=== PATIENT | female | born 1945 | race Caucasian/White ===

== ENCOUNTER 2016-10-01 03:22 | Emergency (ER) | payer OTHER ==
[2016-10-01 03:30] VITALS: TEMP 98.1
--- NOTE | 2016-10-01 04:15 | EDPHY ---
H & P Stated Complaint: vaginal bleeding around 2am HPI/ROS: HPI CHIEF COMPLAINT: Vaginal bleeding that started at 2:00 a.m.. HISTORY OF PRESENT ILLNESS: This patient otherwise healthy 71-year-old female, presents emergency room after she developed vaginal bleeding sudden onset while she was sleeping at 2:00 a.m.. She has never had this before. She has a history of migraines, takes Lexapro, and a statin, not on any blood thinners. She denies any abdominal pain or significant cramping. Denies dysuria. She tells me she woke up and there was blood in between her legs with dark clot. She then went to the bathroom more blood came out. She denies chest pain, fatigue, lightheadedness, dizziness. Denies trauma. Past Medical History: Migraine headaches, depression, hyperlipidemia Past Surgical History: Ovarian cyst for a mass, orthopedic surgery. Social History: Denies daily use of drugs alcohol tobacco products. Family History: Noncontributory ROS REVIEW OF SYSTEMS: A comprehensive 10 point review of systems is otherwise negative aside from elements mentioned in the history of present illness. Exam Constitutional appears well nontoxic, triage nursing summary reviewed, vital signs reviewed, awake/alert. Eyes normal conjunctivae and sclera, EOMI, PERRLA. HENT normal inspection, atraumatic, moist mucus membranes, no epistaxis, neck supple/ no meningismus, no raccoon eyes. Respiratory clear to auscultation bilaterally, normal breath sounds, no respiratory distress, no wheezing. Cardiovascular rate normal, regular rhythm, no murmur, no edema, distal pulses normal. Gastrointestinal soft, non-tender, no rebound, no guarding, normal bowel sounds, no distension, no pulsatile mass. Genitourinary no CVA tenderness. EXAM: CONCHIS SANCHEZ at bedside: Unremarkable exam. Dark brownish looking blood at the os. And in the vaginal vault. No brisk bleed. No tenderness. No obvious mass visualized. No external lesions. Unable to fully see the cervix. Dark brown clotted blood present. Musculoskeletal no midline vertebral tenderness, full range of motion, no calf swelling, no tenderness of extremities, no meningismus, good pulses, neurovascularly intact. Skin pink, warm, & dry, no rash, skin atraumatic. Neurologic awake, alert and oriented x 3, AAOx3, moves all 4 extremities equally, motor intact, sensory intact, CN II-XII intact, normal cerebellar, normal vision, normal speech. Psychiatric normal mood/affect. Heme/Lymph/Immune no lymphadenopathy. Differential Diagnosis: Includes but is not limited to in a particular order vaginal bleeding, cervical cancer, uterine cancer, fibroid Medical Decision Making: Plan for this patient IV establishment, blood draw for CBC, chemistry, check urinalysis, pelvic exam at bedside. Pelvic ultrasound. Re-evaluation: Ultrasound of the pelvis The results of the study are unable to visualize ovaries due to atrophy most likely. Uterus normal. Cervix appears to have a clot in it. Otherwise unremarkable pelvic ultrasound. . I discussed the results of this study with the radiologist Dr. Moreira. 0545: Spoke with Dr. Flowers. She would like to see this patient 11: 00 a.m. on Monday. I did go over ultrasound blood work results. I did explain that I cannot fully see the cervix however there is no significant bleed. Blood work is stable hemodynamics are stable. Ultrasound unrevealing. 0600: I did go over this with the patient. She understands call OBGYN on Monday for her 11 a.m. appointment. She understands to return emergency room if she has brisk vaginal bleeding or heavy vaginal bleeding or any questions or concerns. Source: Patient - Personal History Current Tetanus/Diphtheria Vaccine: Unsure Current Tetanus Diphtheria and Acellular Pertussis (TDAP): Unsure Tetanus Vaccine Date: <10 years - Medical/Surgical History Hx Asthma: No Hx Chronic Respiratory Disease: No Hx Diabetes: No Hx Cardiac Disease: No Hx Renal Disease: No Hx Cirrhosis: No Hx Alcoholism: No Hx HIV/AIDS: No Hx Splenectomy or Spleen Trauma: No Other PMH: PMH: CHOLESTEROL, MIGRAINES. PSH: TONSILS,APPY,GROWTH REMOVED FROM OVARY,ORTHO SURG - Social History Smoking Status: Never smoked Constitutional: Initial Vital Signs Temperature (C) 36.7 C 10/01/16 03:26 Heart Rate 70 10/01/16 03:26 Respiratory Rate 16 10/01/16 03:26 Blood Pressure 133/77 H 10/01/16 03:26 O2 Sat (%) 95 10/01/16 03:26 O2 Delivery Mode Room Air Allergies/Adverse Reactions: Sulfa (Sulfonamide Antibiotics) Allergy (Verified 10/01/16 03:35) Home Medications: Medication Instructions Recorded ? Statin Unk Dose 04/23/14 Imitrex Unk Dose 04/23/14 Lexapro Unk Dose 04/23/14 Medical Decision Making - Data Points Laboratory Results: Laboratory Results 10/01/16 04:40 10/01/16 04:40 10/01/16 10/01/16 10/01/16 04:40 04:40 04:40 WBC 7.65 10^3/uL 10^3/uL (3.80-9.50) RBC 4.02 10^6/uL L 10^6/uL (4.18-5.33) Hgb 13.2 g/dL g/dL (12.6-16.3) Hct 39.6 % % (38.0-47.0) MCV 98.5 fL fL (81.5-99.8) MCH 32.8 pg pg (27.9-34.1) MCHC 33.3 g/dL g/dL (32.4-36.7) RDW 12.6 % % (11.5-15.2) Plt Count 121 10^3/uL L 10^3/uL (150-400) MPV 11.4 fL fL (8.7-11.7) Neut % (Auto) 51.1 % % (39.3-74.2) Lymph % (Auto) 34.4 % % (15.0-45.0) [place] % (Auto) 10.3 % % (4.5-13.0) Eos % (Auto) 3.3 % % (0.6-7.6) Baso % (Auto) 0.5 % % (0.3-1.7) Nucleat RBC Rel Count 0.0 % % (0.0-0.2) Absolute Neuts (auto) 3.91 10^3/uL 10^3/uL (1.70-6.50) Absolute Lymphs (auto) 2.63 10^3/uL 10^3/uL (1.00-3.00) Absolute Monos (auto) 0.79 10^3/uL 10^3/uL (0.30-0.80) Absolute Eos (auto) 0.25 10^3/uL 10^3/uL (0.03-0.40) Absolute Basos (auto) 0.04 10^3/uL 10^3/uL (0.02-0.10) Absolute Nucleated RBC 0.00 10^3/uL 10^3/uL (0-0.01) Immature Gran % 0.4 % % (0.0-1.1) Immature Gran # 0.03 10^3/uL 10^3/uL (0.00-0.10) Sodium 140 mEq/L mEq/L (134-144) Potassium 4.3 mEq/L mEq/L (3.5-5.2) Chloride 107 mEq/L mEq/L (97-110) Carbon Dioxide 22 mEq/l mEq/l (22-31) Anion Gap 11 mEq/L mEq/L (8-16) BUN 16 mg/dL mg/dL (7-23) Creatinine 0.9 mg/dL mg/dL (0.6-1.0) Estimated GFR > 60 Glucose 86 mg/dL mg/dL (70-100) Calcium 9.2 mg/dL mg/dL (8.5-10.4) Urine Color RED Urine Appearance TURBID Urine pH 6.0 (5.0-7.5) Ur Specific [place] 1.015 (1.002-1.030) Urine Protein 2+ H (NEGATIVE) Urine Ketones NEGATIVE (NEGATIVE) Urine Blood 2+ H (NEGATIVE) Urine Nitrate NEGATIVE (NEGATIVE) Urine Bilirubin NEGATIVE (NEGATIVE) Urine Urobilinogen NEGATIVE EU EU (0.2-1.0) Ur Leukocyte Esterase 1+ H (NEGATIVE) Urine RBC 50-182 /hpf H /hpf (0-3) Urine WBC 50-182 /hpf H /hpf (0-3) Ur Epithelial Cells NONE SEEN /lpf /lpf (NONE-1+) Urine Bacteria 4+ /hpf H /hpf (NONE SEEN) Urine Glucose NEGATIVE (NEGATIVE) Departure - Departure Disposition: Home, Routine, Self-Care Clinical Impression: Vaginal bleeding Condition: Good Instructions: Dysfunctional Uterine Bleeding (ED) Additional Instructions: 1. Return to the emergency room if you have severe heavy bleeding. 2. Please follow up with OBGYN. Please call their for an appointment. 3. They would like to see on Monday at 11:00 a.m. it. Please call there to confirm your appointment. Referrals: Carmen Wolfe MD [Primary Care Provider] - As per Instructions Bushra Flowers MD [Medical Doctor] - As per Instructions
[2016-10-01 05:19] LABS: % IMMATURE GRANULYOCYTES 0.4 % (0.0-1.1); ABSOLUTE IMMATURE GRANULOCYTES 0.03 10^3/uL (0.00-0.10); ADD DIFF? NO; ADD MORPH? NO; ADD SCAN? NO; ATYPICAL LYMPHOCYTE FLAG 20 (0-99); FRAGMENT RBC FLAG 0 (0-99); HEMATOCRIT 39.6 % (38.0-47.0); HEMOGLOBIN 13.2 g/dL (12.6-16.3); LEFT SHIFT FLG 0 (0-99); LIPEMIA HEMOLYSIS FLAG 80 (0-99); MEAN CELL HEMOGLOBIN 32.8 pg (27.9-34.1); MEAN CELL HEMOGLOBIN CONCENTR. 33.3 g/dL (32.4-36.7); MEAN CELL VOLUME 98.5 fL (81.5-99.8); MEAN PLATELET VOLUME 11.4 fL (8.7-11.7); PLATELET CLUMPS FLAG 0 (0-99); PLATELET COUNT 121 10^3/uL (150-400); RED BLOOD CELL COUNT 4.02 10^6/uL (4.18-5.33); RED CELL DISTRIBUTION WIDTH 12.6 % (11.5-15.2)
[2016-10-01 05:25] LABS: COLOR RED; LEUKOCYTE ESTERASE,URINE 1+ (NEGATIVE); NITRITE,URINE NEGATIVE (NEGATIVE)
[2016-10-01 05:32] LABS: ANION GAP 11 mEq/L (8-16); CALCIUM 9.2 mg/dL (8.5-10.4); CARBON DIOXIDE 22 mEq/l (22-31); CHLORIDE 107 mEq/L (97-110); CREATININE 0.9 mg/dL (0.6-1.0); GLOMERULAR FILTRATION RATE > 60; GLUCOSE 86 mg/dL (70-100); POTASSIUM 4.3 mEq/L (3.5-5.2); SODIUM 140 mEq/L (134-144)
[2016-10-01 05:36] LABS: BACTERIA 4+ /hpf (NONE SEEN); RBC,URINE 50-182 /hpf (0-3); WBC,URINE 50-182 /hpf (0-3)
[2016-10-01 06:08] VITALS: BP 107/79; PULSE 64; RESP 18; O2SAT 96
== END 2016-10-01 06:08 | disposition home or self-care (01) ==
DX: N93.9 Abnormal uterine and vaginal bleeding, unspecified (principal)

== ENCOUNTER → 2016-12-08 | Outpatient (CLI) | payer OTHER | LOC: BMCIMAGING 08:51 | PROVIDERS: ATTEND Internal Medicine | DX: Z12.31 Encounter for screening mammogram for malignant neoplasm of breast (principal); Z79.890 Hormone replacement therapy | CPT/HCPCS: G0202 ==

== ENCOUNTER → 2017-12-20 | Outpatient (CLI) | payer OTHER | LOC: BMCIMAGING 13:22 | PROVIDERS: ATTEND Internal Medicine | DX: Z12.31 Encounter for screening mammogram for malignant neoplasm of breast (principal) ==